=== PATIENT | female | born 1945 | race Caucasian/White ===

== ENCOUNTER 2019-01-24 12:00 | Emergency (ER) | payer MEDICARE, OTHER ==
[2019-01-24] MEDS ORDERED: KETOROLAC TROMETHAMINE 60 MG/2 ML VIAL ONE (12:20)
[2019-01-24] MEDS ORDERED: DIAZEPAM 5 MG TABLET ONE (12:21)
== END 2019-01-24 13:59 | disposition home or self-care (01) ==
LOC: EDH 12:00
DX: M54.5 Low back pain (principal); G89.29 Other chronic pain; M19.90 Unspecified osteoarthritis, unspecified site; M79.2 Neuralgia and neuritis, unspecified; Z98.890 Other specified postprocedural states; Z88.1 Allergy status to other antibiotic agents
CPT/HCPCS: 73502; 96372; 99284; J1885

== ENCOUNTER → 2022-02-01 | Outpatient (CLI) | payer MEDICARE, OTHER | END | disposition home or self-care (01) | LOC: RAH 10:07 | PROVIDERS: ATTEND Internal Medicine Critical Care Medicine | DX: I87.2 Venous insufficiency (chronic) (peripheral) (principal); I87.309 Chronic venous hypertension (idiopathic) without complications of unspecified lower extremity | CPT/HCPCS: 93970 ==